=== PATIENT | male | born 1965 | race Caucasian/White ===

== ENCOUNTER 2021-02-27 16:13 | Emergency (ER) | payer SELFPAY ==
--- NOTE | ~2021-02-27 | CT_ITS ---
EXAMINATION: CT abdomen pelvis w con EXAM DATE: 02/27/2021 19:09 INDICATION: Abdominal pain. TECHNIQUE: Spiral CT of the abdomen and pelvis was performed following intravenous injection of 100 m L Omnipaque 350. Axial, coronal and sagittal images of the abdomen and pelvis were reviewed. The do se-length product (DLP) for this examination was 1100.95 mGy-cm. The exposure was tailored according to patient size (auto mA exposure control), and iterative reconstruction (ASIR) was used as addition al dose reduction technique. There is no prior study for comparison. FINDINGS: There is small peripheral geographically shaped region of decreased splenic attenuation inf eriorly, possible small acute splenic infarction. Splenic artery and vein both enhance as expected. The liver, adrenal glands and pancreas are unremarkable. There are gallstones within an otherwise un remarkable gallbladder. No evidence of obstructive biliary disease. Portal and splenic veins are pa tent. Kidneys enhance symmetrically. There is no hydronephrosis. Several small regions of right re nal cortical scarring from prior infarctions or infection. The prostate is unremarkable. The bladder is unremarkable. There is no retroperitoneal or pelvic lymphadenopathy. There is mild scattered a rteriosclerotic disease. The appendix is normal. Stomach is moderately distended with fluid and small amount of food content. Small bowel is normal in caliber. There is moderate amount of colonic fluid, correlate for diarrhea . There is mild scattered colonic diverticulosis. There is no adjacent inflammatory change to sugges t diverticulitis. No free intraperitoneal gas. There is thoracic aortic stent. There are sternotom y wires. Heart normal in size. Some left ventricular hypertrophy suspected. The lung bases are unrem arkable. 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 Some compensatory mild lumbar dextroscoliosis. Advanced disc disease T12-L1 and L5-S1. And some narro wing of the spinal canal. IMPRESSION: 1. Moderate amount of stomach and colonic fluid, correlate for diarrhea or gastroenteritis. 2. Small region geographically shaped splenic hypodensity, possible acute infarction. 3. 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 4. Mild colonic diverticulosis. 5. Cholelithiasis. Reviewed, dictated and finalized at location [facility]. [facility] IMPRESSION: 1. Moderate amount of stomach and colonic fluid, correlate for diarrhea or gas troenteritis. 2. Small region geographically shaped splenic hypodensity, possible acute infa rction. 3. 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 4. Mild colonic diverticulosis. 5. Cholelithiasis.
[2021-02-27 16:20] VITALS: BP 163/119; PULSE 97; RESP 20; TEMP 35.6; O2SAT 99
--- NOTE | 2021-02-27 18:04 | ED.GENADULT ---
HPI - General Adult General Chief complaint: Abdominal Pain Stated complaint: abdominal pain Time Seen by Provider: 02/27/21 17:56 Source: RN notes reviewed History of Present Illness HPI narrative: Patient presents emergency department from intermediate for abdominal pain. Patient states pain began proximally 1 PM today after eating what he believes was bad fish he states abdominal pain is diffuse throughout the abdomen described as cramping in nature he states a subjective fever but denies a measured fever he denies any nausea vomiting diarrhea or any other symptoms of concern Related Data Allergies Allergy/AdvReac Type Severity Reaction Status Date / Time Penicillins Allergy Hives Verified 02/27/21 17:59 Review of Systems Review of Systems: Gen.: Subjective fever ENT: Denies congestion Respiratory: Denies shortness of breath or cough CV: Denies chest pain or palpitations GI: See HPI denies burning, urgency, frequency or hematuria Musculoskeletal: Denies back pain or muscle pain Neuro: Denies numbness, tingling, weakness or focal weakness Skin: Denies rash Except as documented, all other systems reviewed and negative [facility] Past Medical History Medical History (Updated 02/27/21 @ 23:05 by Amador Dickinson DO) Pulmonary embolism Social History Social History (Updated 02/27/21 @ 18:06 by Amador Dickinson DO) Smoking status: Current every day smoker Exam Narrative: APPEARANCE: No acute distress, nontoxic, resting in bed HEENT: Normocephalic, atraumatic, OMM RESPIRATORY: No respiratory distress, clear to auscultation bilaterally with no rhonchi wheezing or rales CARDIOVASCULAR: RRR s murmur ABDOMINAL: Soft nondistended diffusely tender to palpation no rebound or guarding MUSCULOSKELETAl: Moves all extremities. No clubbing, cyanosis or edema. NEURO: Awake and alert. Following commands, speech normal, no focal deficits SKIN:: Warm, dry. Normal Color PSYCHIATRIC: Normal affect/mood Course Course Emergency Course: Called and discussed with Dr. Bullock presentation work-up agrees with admission in the ICU with patient on insulin drip for DKA request the patient be started on Levaquin and Flagyl for possible GI infection Called and discussed with RONAN Son for Dr. Cornelius presentation work-up agrees with admission at this time Patient went to the restroom and states he had a bloody bowel movement rectal exam was performed rectal exam is Hemoccult positive Called back and discussed with Dr. Arteaga CT results Dr. Arteaga evaluated the CT and does appear the patient has a blood clot in his SMA Discussed with patient need for transfer request emergency at this time as he has had previous procedures there Called and discussed with [facility] unable to accept the patient at this time Called and discussed with [facility] vascular surgery unable to accept at this time [facility] discussed with Dr. Alan vascular surgery reviewed the images at this time he does agree that the patient does need acute vascular intervention he does request that I call and we discussed with [facility] as the patient has had previous procedures at that facility Called discussed with Dr. Peralta at [facility] at this time he does request the patient be transferred to the [facility] emergency department he request the patient be started on a heparin drip we did discuss the patient has been having an episode of bloody stool and he states that with blood clot and SMA does request heparin drip Discussed with Dr. Nicole [facility] emergency department accepts patient Discussed with patient need for transfer in agreement at this time we discussed work-up including clot and SMA at this time I will fly via helicopter as time sensitive and traveling to [facility] Vital Signs Vital signs: Vital Signs Temperature 96.0 F L 02/27/21 16:20 Pulse Rate 97 02/27/21 16:20 Respiratory Rate 20 02/27/21 16:20 Blood Pr
[2021-02-27 18:21] LABS: Basophils Absolute Auto 0.1 K/mm3 (0.0-0.1); Basophils Percent Auto 0.5 % (0.2-1.2); Eosinophils Percent Auto 0.1 % (0-4.4); Hemoglobin 17.5 g/dL (14.0-18.0); Immature Granulocyte Absolute 0.15 K/mm3 (0.00-0.031); Immature Granulocyte Percent A 0.7 % (0-0.5); Lymphocytes Absolute Auto 1.18 K/mm3 (0.9-3.2); Lymphocytes Percent Auto 5.4 % (18.3-44.2); Mean Corpuscular HGB Conc 31.8 g/dl (32-36); Mean Corpuscular Volume 81.7 fl (80-100); Mean Platelet Volume 10.5 fl (7.4-10.4); Monocytes Absolute Auto 1.4 K/mm3 (0.1-0.6); Monocytes Percent Auto 6.4 % (2.6-8.5); Neutrophils Absolute Auto 19.2 K/mm3 (1.3-6.7); Neutrophils Percent Auto 86.9 % (45.5-73.1); Platelet Count Result 213 k/mm3 (150-375); Red Blood Count 6.73 M/mm3 (4.6-6.20)
[2021-02-27] MEDS: SODIUM CHLORIDE 0.9% IV 1,000 ML 999 ML IV CONT ×2 (18:22→19:14)
[2021-02-27 18:28] LABS: Add Urine Microscopic? YES; Appearance Urine Clear (Clear); Bilirubin Urine Negative (Negative); Blood Urine 1+ (Negative); Color Urine Yellow (Yellow); Glucose Urine UA 3+ mg/dL (Negative); Ketones Urine Trace mg/dL (Negative); Leukocyte Esterase Ur Negative LEU/UL (Negative); Mucus Urine Rare /lpf; Nitrate Urine Negative (Negative); Protein Urine 2+ mg/dL (Negative); RBC Urine 0-2 /hpf (0-2); Specific Grav Ur 1.027 (1.001-1.035); Urobilinogen Urine Negative mg/dL (<2.0); WBC Urine 0-3 /hpf
[2021-02-27 18:33] LABS: INR 1.5; Prothrombin Time 17.6 Seconds (11.1-14.7)
[2021-02-27 18:34] LABS: Partial Thromboplastin Time 75.1 SECONDS (22.3-36.8)
[2021-02-27 18:36] LABS: Albumin Level 5.1 g/dL (3.5-5.1); Alkaline Phosphatase 114 U/L (38-126); Anion Gap 23 mmol/L (8-16); Aspartate Amino Transferase 81 U/L (17-59); Bilirubin,Total 0.5 mg/dL (0.2-1.3); Blood Urea Nitrogen 23 mg/dL (9-20); Carbon Dioxide 18 mmol/L (22-30); Chloride 104 mmol/L (98-107); Estimated CRCL calculation 72 ml/min; Estimated Glomerular Filt Rate 57; Glucose 285 mg/dL (65-110); Lipase 190 U/L (23-300); Potassium 3.9 mmol/L (3.4-5.0); Sodium 145 mmol/L (137-145)
[2021-02-27 18:46] LABS: Alanine Aminotransferase 42 U/L (4-50)
--- NOTE | 2021-02-27 18:47 | PC.NURSE ---
Called lab added Beta Hydroxybut, phos Mg at 18:47
[2021-02-27 18:56] LABS: Magnesium 1.7 mg/dL (1.6-2.3); Phosphorus 5.9 mg/dL (2.5-4.5)
[2021-02-27 18:57] LABS: Alveolar/Arterial O2 Gradient 45.4 mmHg; Base Excess ABG -8.4 mEq/l (+/-2.0); Fractional Inspired Oxygen 21 %; HCO3 ABG 15.8 mEq/l (22.0-26.0); Oxygen Content ABG 22.2 %vol (16.0-22.0); Oxygen Saturation ABG 92.9 % (95.0-100.0); PCO2 ABG 30.1 mmHg (35.0-45.0); PO2 ABG 68.3 mmHg (80.0-100.0); PO2 FiO2 Ratio Arterial Blood 3.25 %; Total Hemoglobin 17.4 g/dL (12.0-18.0); pH ABG 7.337 (7.350-7.450)
[2021-02-27 19:01] LABS: Device ROOM AIR; Modified Allen's Test Pass; Site Drawn LEFT RADIAL
[2021-02-27 19:03] LABS: Beta-Hydroxybutyrate/Acetoacetate 0.76 mmol/L (0.02-0.27)
[2021-02-27 19:49] VITALS: BP 156/119; PULSE 95; RESP 20; O2SAT 97
[2021-02-27 20:11] LABS: Glucose Point of Care 200 mg/dl (65-105)
[2021-02-27 20:20] LABS: Anion Gap 20 mmol/L (8-16); Blood Urea Nitrogen 24 mg/dL (9-20); Calcium 9.3 mg/dL (8.4-10.2); Carbon Dioxide 19 mmol/L (22-30); Chloride 106 mmol/L (98-107); Estimated CRCL calculation 72 ml/min; Estimated Glomerular Filt Rate 57; Glucose 209 mg/dL (65-110); Potassium 4.4 mmol/L (3.4-5.0); Sodium 145 mmol/L (137-145)
[2021-02-27] MEDS: MORPHINE SULFATE (*CRX) 4 MG/ML INJ IV PUSH (20:20)
[2021-02-27] MEDS: metroNIDAZOLE 500 MG/ISO 100ML 500 MG/100 ML BAG 100 MG IVPB (20:24)
[2021-02-27 20:38] LABS: Lactic Acid Reflex 6.7 mmol/L (0.7-2.1)
[2021-02-27] MEDS: ONDANSETRON INJ 4 MG/2 ML VIAL IV PUSH (21:07)
--- NOTE | 2021-02-27 21:07 | ECG_ITS ---
Measurements Intervals [place] Rate: 106 P: 39 FL: 158 QRS: 2 QRSD: 116 T: 20 QT: 374 QTc: 499 Interpretive Statements SINUS TACHYCARDIA ATRIAL PREMATURE COMPLEX LEFT ATRIAL ENLARGEMENT INCOMPLETE RIGHT BUNDLE BRANCH BLOCK DELAYED PRECORDIAL R/S TRANSITION BORDERLINE ST-T WAVE ABNORMALITY- INFERIOR LEADS BASELINE ARTIFACT- I, II, III, AVR, AVF, V1-V6 ABNORMAL ECG Electronically Signed On 02-28-2021 6:58:18 PHARMACY BILLING ADJUDICATOR by Umer Rhoades D.O.
[2021-02-27 21:15] LABS: Hemoglobin A1C 8.4 % (<5.7)
[2021-02-27] MEDS: HEPARIN SODIUM 5,000 UNITS/ML VIAL 7000 UNITS IV PUSH (21:50)
[2021-02-27 22:34] VITALS: BP 146/112; PULSE 105; RESP 30; O2SAT 95
[2021-02-27 23:07] LABS: Reflex Lactic Acid Yes or No Add Lactic
--- NOTE | 2021-03-01 06:25 | PC.NURSE ---
03/01/2021 06:22 TAZ Mehta in ICU at [facility] notified of positive blood cultures.
== END 2021-02-27 22:34 | disposition short-term general hospital (02) ==
PROVIDERS: Emergency Provider Emergency Medicine
DX: K55.069 Acute infarction of intestine, part and extent unspecified (principal); K55.059 Acute (reversible) ischemia of intestine, part and extent unspecified; D73.5 Infarction of spleen; E11.10 Type 2 diabetes mellitus with ketoacidosis without coma; Z86.711 Personal history of pulmonary embolism; F17.200 Nicotine dependence, unspecified, uncomplicated; R00.0 Tachycardia, unspecified; I49.1 Atrial premature depolarization; I45.10 Unspecified right bundle-branch block; R94.31 Abnormal electrocardiogram [ECG] [EKG]; K80.20 Calculus of gallbladder without cholecystitis without obstruction; K57.90 Diverticulosis of intestine, part unspecified, without perforation or abscess without bleeding
CPT/HCPCS: 36415; 36600; 74177; 80048; 80053; 81001; 82010; 82805; 82948; 83036; 83605; 83690; 83735; 84100; 85025; 85610; 85730; 86850; 86900; 86901; 87040; 93005; 96361; 96365; 96375; 99291; J0131; J1644; J2270; J2405; J7030; Q9967